=== PATIENT | female | born 1935 | race Caucasian/White ===

== ENCOUNTER 2017-04-24 16:20 | Inpatient (IN) | payer MEDICARE, MEDICAID ==
[~2017-04-24] VITALS: Ht 165.1 cm; Wt 81.9 kg
[2017-04-24 16:20] VITALS: BP 138/82
[~2017-04-24 16:20] MED LIST: 'CLONIDINE0.1 MG PO; ACETAMINOPHEN-H1 TA2 PO; ALBUTEROL INH; AMLODIPINE BESY10 MG PO; ARTIFICIAL TEAR15 M1 OPH; ARTIFICIAL TEAR30 ML OPH; ASPIRIN81 M1 PO; ATIVAN0.5 MG PO; CALCIUM + VITA1 EAC2 PO; CALCIUM PO; CALCIUM600 M2 PO; CALTRATE 600600 MG PO; CELEXA10 MG PO; CHLORASEPTIC 1177 ML MM; CHLORASEPTIC MA30 ML MM; CIPRO250 MG PO; CIPRO500 MG PO; CLONIDINE HCL0.1 M1 PO; CLONIDINE PO; CLOTRIMAZOLE T; DITROPAN XL10 MG PO; DOCUSATE SODIU100 M2 PO; DULCOLAX10 M1 RC; EPI EZ PEN1 MG/ML IM; FERROUS SULFAT325 MG PO; FLAGYL250 MG PO; FLORASTOR 33 MG1 CAP PO; FLORASTOR250 MG PO; FORTAZ2 G1 IJ; GEMCOR600 MG PO; GEMFIBROZIL600 MG PO; GLIPIZIDE10 M2 PO; HUMALOG100 UNIT/2 SQ; HUMULIN 70/30 703 M1 SC; IBUPROFEN400 MG PO; KLOR-CON 88 ME1 PO; KLOR-CON 88 MEQ PO; LANTUS100 U/ML SC; LASIX20 MG PO; LEVOTHYROXIN0.025 MG PO; LOMOTIL PO; LOSARTAN POTASS1 TA4 PO; LOSARTAN POTASS1 TA6 PO; LOSARTAN POTASS1 TAB PO; LOVENOX30 MG/0.3 SC; MACROBID100 M1 PO; MACRODANTIN50 MG PO; MILK OF MA400 MG/51 PO; MIRALAX POWDER17 G1 PO; MIRALAX17 GM/DOSE PO; MULTIPLE VITAMI1 CAP PO; MUSCLE RUB 10% TP; Metformin Hydr500 MG PO; NEURONTIN300 MG PO; NITROFURANTOIN100 M3 PO; NITROFURANTOIN50 M2 PO; NOVOLIN 701 UNIT/0.0; NOVOLOG 701 UNIT/0.0 SC; NOVOLOG FLEX100 U/ML SC; NOVOLOG MI100 UNIT/1 SQ; OXYBUTYNIN CHLO10 MG PO; PRESERVISION A1 EAC1 PO; PRESERVISION1 SGL PO; Q-TUSSIN100 MG/5 M PO; RANITIDINE HCL150 M1 PO; RANITIDINE150 MG PO; TYLENOL PO; TYLENOL325 M1 PO; ZYVOX600 M1 IV; ZYVOX600 MG PO; [UNRECOGNIZED DRUG - OTHER] PO
[2017-04-24 17:00] LABS: BASO % 0.2 % (0.0-1.0); EOS # 0.4 10*3/uL (0.0-0.4); EOS % 4.8 % (1.0-4.0); HEMATOCRIT 41.2 % (37.0-47.0); LYMPH # 1.3 10*3/uL (1.3-4.4); LYMPH % 15.9 % (27.0-41.0); MEAN CELL VOLUME 92.2 fl (81.0-99.0); MEAN CORPUSCULAR HGB 29.1 pg (27.0-31.0); MEAN CORPUSCULAR HGB CONC 31.6 g/dl (33.0-37.0); MEAN PLATELET VOLUME 10.8 fl (9.6-12.3); MONO % 12.4 % (3.0-9.0); NEUT # 5.5 10*3/uL (2.3-7.9); NEUT % 66.3 % (47.0-73.0); PLATELET COUNT AUTOMATED 245 10*3/uL (130-400); RED BLOOD COUNT 4.47 10*6/uL (4.10-5.10); WHITE BLOOD COUNT 8.3 10*3/uL (4.8-10.8)
[2017-04-24 17:16] LABS: ALBUMIN 2.7 gm/dl (3.1-4.5); ALKALINE PHOSPHATASE 101 U/L (45-117); BUN 31 mg/dl (7-24); CHLORIDE 104 mmol/L (98-107); CPK 26 U/L (26-192); CREATININE 1.03 mg/dL (0.55-1.02); LDH 124 U/L (84-246); MAGNESIUM 1.9 mg/dL (1.5-2.1); POTASSIUM 3.8 mmol/L (3.5-5.1); SGOT/AST 12 IU/L (3-35); SGPT/ALT 16 U/L (12-78); SODIUM 144 mmol/L (136-145); TOTAL PROTEIN 7.4 gm/dL (6.4-8.2)
[2017-04-24 17:19] LABS: CKMB < 0.5 ng/ml (0.5-3.6); TROPONIN I < 0.015 ng/ml (<0.045)
[2017-04-24 18:04] LABS: BILIRUBIN NEGATIVE (NEGATIVE); BLOOD TRACE-INTACT (NEGATIVE); CLARITY SL CLOUDY (CLEAR); COLOR YELLOW (YELLOW); GLUCOSE NEGATIVE (NEGATIVE); KETONE NEGATIVE (NEGATIVE); LEUKO ESTERASE 3+ (NEGATIVE); NITRITE POSITIVE (NEGATIVE); SPECIFIC GRAVITY 1.015 (1.005-1.030); UROBILINOGEN 0.2 E.U./dl (0.2-1.0)
[2017-04-24 18:07] LABS: BACTERIA 3+; RBC 0-2 rbc/hpf (0-2); WBC 21-30 wbc/hpf (0-5)
[2017-04-24 20:00] VITALS: BP 157/75
[2017-04-24] MEDS ORDERED: RISPERDAL0.25 MG PO (20:54)
[2017-04-24] MEDS ORDERED: DUONEB 3 MG/3 ML3 M1 INH (20:56)
[2017-04-24] MEDS ORDERED: DIABETIC T100 MG/51 PO (20:56)
[2017-04-25] VITALS: BP 136/80
[2017-04-25 08:00] VITALS: BP 136/52
[2017-04-25 12:00] VITALS: BP 110/53
[2017-04-25 16:00] VITALS: BP 137/59
[2017-04-25 20:00] VITALS: BP 159/80
[2017-04-26] VITALS: BP 157/80
[2017-04-26 06:41] LABS: BASO % 0.3 % (0.0-1.0); EOS # 0.5 10*3/uL (0.0-0.4); EOS % 6.9 % (1.0-4.0); HEMOGLOBIN 11.4 g/dl (12.0-16.0); LYMPH # 1.2 10*3/uL (1.3-4.4); LYMPH % 18.8 % (27.0-41.0); MEAN CELL VOLUME 93.3 fl (81.0-99.0); MEAN CORPUSCULAR HGB 29.5 pg (27.0-31.0); MEAN CORPUSCULAR HGB CONC 31.7 g/dl (33.0-37.0); MEAN PLATELET VOLUME 10.9 fl (9.6-12.3); MONO # 0.9 10*3/uL (0.1-1.0); MONO % 13.2 % (3.0-9.0); NEUT # 3.9 10*3/uL (2.3-7.9); PLATELET COUNT AUTOMATED 210 10*3/uL (130-400); RED BLOOD COUNT 3.86 10*6/uL (4.10-5.10); RED CELL DISTRI WIDTH 12.8 % (0-14.5); WHITE BLOOD COUNT 6.5 10*3/uL (4.8-10.8)
[2017-04-26 07:06] LABS: ALBUMIN 2.3 gm/dl (3.1-4.5); ALKALINE PHOSPHATASE 99 U/L (45-117); BUN 26 mg/dl (7-24); CHLORIDE 105 mmol/L (98-107); CHOLESTEROL 173 mg/dL (<200); CREATININE 0.92 mg/dL (0.55-1.02); HDL CHOLESTEROL 23 mg/dl (40-60); LDL CHOLESTEROL 101 mg/dL (9-159); MAGNESIUM 1.9 mg/dL (1.5-2.1); PHOSPHOROUS 3.1 mg/dL (2.5-4.9); POTASSIUM 3.6 mmol/L (3.5-5.1); SGOT/AST 14 IU/L (3-35); SGPT/ALT 17 U/L (12-78); SODIUM 143 mmol/L (136-145); TOTAL PROTEIN 6.5 gm/dL (6.4-8.2); TRIGLYCERIDES 244 mg/dl (<150); VLDL CHOLESTEROL 49 mg/dL (6-40)
[2017-04-26 08:00] VITALS: BP 149/86
[2017-04-26 12:00] VITALS: BP 144/78
[2017-04-26 16:00] VITALS: BP 126/64
[2017-04-26 20:00] VITALS: BP 130/71
[2017-04-27] VITALS: BP 153/80
[2017-04-27 04:00] VITALS: BP 156/78
[2017-04-27 08:00] VITALS: BP 157/64
[2017-04-27 12:00] VITALS: BP 130/67
[2017-04-27 16:00] VITALS: BP 130/64
[2017-04-27 20:00] VITALS: BP 134/62
[2017-04-28] VITALS: BP 127/65
[2017-04-28 06:53] LABS: BASO % 0.4 % (0.0-1.0); EOS # 0.5 10*3/uL (0.0-0.4); EOS % 8.8 % (1.0-4.0); HEMATOCRIT 36.8 % (37.0-47.0); LYMPH # 1.4 10*3/uL (1.3-4.4); LYMPH % 27.3 % (27.0-41.0); MEAN CELL VOLUME 90.6 fl (81.0-99.0); MEAN CORPUSCULAR HGB 29.6 pg (27.0-31.0); MEAN CORPUSCULAR HGB CONC 32.6 g/dl (33.0-37.0); MEAN PLATELET VOLUME 10.8 fl (9.6-12.3); MONO # 0.6 10*3/uL (0.1-1.0); MONO % 10.7 % (3.0-9.0); NEUT # 2.8 10*3/uL (2.3-7.9); NEUT % 52.6 % (47.0-73.0); PLATELET COUNT AUTOMATED 225 10*3/uL (130-400); RED BLOOD COUNT 4.06 10*6/uL (4.10-5.10); RED CELL DISTRI WIDTH 12.8 % (0-14.5); WHITE BLOOD COUNT 5.2 10*3/uL (4.8-10.8)
[2017-04-28 08:00] VITALS: BP 134/56
[2017-04-28 12:00] VITALS: BP 135/50
[2017-04-28] MEDS ORDERED: Synthroid,Levo50 MCG PO (13:41)
[2017-04-28] MEDS ORDERED: LEVAQUIN500 M2 PO (13:42)
[2017-04-28 16:00] VITALS: BP 131/82
== END 2017-04-28 18:14 | disposition home or self-care (01) | DRG 682 ==
LOC: ED 16:20 → 5E 18:35 → EDHOLD 18:35 → 5E 04-28 18:14
PROVIDERS: Internal Medicine; Physician Assistant; ADMIT Internal Medicine
DX: N17.0 Acute kidney failure with tubular necrosis (principal); E43 Unspecified severe protein-calorie malnutrition; G93.40 Encephalopathy, unspecified; N39.0 Urinary tract infection, site not specified; E11.49 Type 2 diabetes mellitus with other diabetic neurological complication; E66.9 Obesity, unspecified; E03.9 Hypothyroidism, unspecified; R31.9 Hematuria, unspecified; D64.9 Anemia, unspecified; Z51.5 Encounter for palliative care; Z66 Do not resuscitate; Z79.4 Long term (current) use of insulin; I10 Essential (primary) hypertension; Z86.73 Personal history of transient ischemic attack (TIA), and cerebral infarction without residual deficits; Z88.0 Allergy status to penicillin; Z88.2 Allergy status to sulfonamides; Z91.012 Allergy to eggs; Z79.899 Other long term (current) drug therapy; Z90.49 Acquired absence of other specified parts of digestive tract; Z82.3 Family history of stroke; Z82.49 Family history of ischemic heart disease and other diseases of the circulatory system; Z87.81 Personal history of (healed) traumatic fracture; Z79.82 Long term (current) use of aspirin; Z68.31 Body mass index [BMI] 31.0-31.9, adult

== ENCOUNTER 2017-05-13 13:18 | Inpatient (IN) | payer MEDICARE, MEDICAID ==
[~2017-05-13] VITALS: Ht 172.7 cm; Wt 84.0 kg
--- NOTE | ~2017-05-13 | EKG ---
[place], [place] ELECTROCARDIOGRAM REPORT NAME: VALENTE HE UNIT #: [id number] ROOM: [facility] DOCTOR: PANKAJ ADLER,RADHA BIRTHDATE: [birth year] DOS: 05/15/2017 TIME: 10:56 a.m. IMPRESSION: 1. Sinus rhythm. 2. Left ventricular hypertrophy. 3. Borderline prolonged QTc interval. RADHA LIRA MD CM:EKGRPT:ELECTROCARDIOGRAM REPORT [id number] RADHA LIRA MD
[2017-05-13 13:18] VITALS: BP 134/88
[~2017-05-13 13:18] MED LIST changes: +DIABETIC T100 MG/51 PO; +DUONEB 3 MG/3 ML3 M1 INH; +LEVAQUIN500 M2 PO; +RISPERDAL0.25 MG PO; +Synthroid,Levo50 MCG PO
[2017-05-13 14:19] LABS: BASO % 0.3 % (0.0-1.0); EOS # 0.5 10*3/uL (0.0-0.4); EOS % 4.8 % (1.0-4.0); HEMATOCRIT 41.5 % (37.0-47.0); HEMOGLOBIN 13.2 g/dl (12.0-16.0); LYMPH # 1.9 10*3/uL (1.3-4.4); MEAN CELL VOLUME 90.2 fl (81.0-99.0); MEAN CORPUSCULAR HGB 28.7 pg (27.0-31.0); MEAN CORPUSCULAR HGB CONC 31.8 g/dl (33.0-37.0); MEAN PLATELET VOLUME 10.6 fl (9.6-12.3); MONO # 0.9 10*3/uL (0.1-1.0); MONO % 9.4 % (3.0-9.0); NEUT # 6.4 10*3/uL (2.3-7.9); NEUT % 66.1 % (47.0-73.0); PLATELET COUNT AUTOMATED 263 10*3/uL (130-400); RED CELL DISTRI WIDTH 12.7 % (0-14.5); WHITE BLOOD COUNT 9.7 10*3/uL (4.8-10.8)
[2017-05-13 14:21] LABS: BILIRUBIN NEGATIVE (NEGATIVE); BLOOD TRACE-INTACT (NEGATIVE); CLARITY CLEAR (CLEAR); COLOR YELLOW (YELLOW); GLUCOSE NEGATIVE (NEGATIVE); KETONE NEGATIVE (NEGATIVE); LEUKO ESTERASE 3+ (NEGATIVE); NITRITE NEGATIVE (NEGATIVE); UROBILINOGEN 0.2 E.U./dl (0.2-1.0)
[2017-05-13 14:30] LABS: WBC 51-100 wbc/hpf (0-5)
[2017-05-13 14:30] LABS: ACT PARTIAL THROMBO TIME 25.6 SECONDS (20.8-31.5)
[2017-05-13 14:31] LABS: BACTERIA 1+
[2017-05-13 14:36] LABS: ALKALINE PHOSPHATASE 115 U/L (45-117); BUN 34 mg/dl (7-24); CHLORIDE 100 mmol/L (98-107); CKMB 2.1 ng/ml (0.5-3.6); CPK 57 U/L (26-192); CREATININE 1.11 mg/dL (0.55-1.02); LIPASE 155 U/L (73-393); MAGNESIUM 2.2 mg/dL (1.5-2.1); POTASSIUM 3.8 mmol/L (3.5-5.1); SGOT/AST 20 IU/L (3-35); SGPT/ALT 21 U/L (12-78); SODIUM 138 mmol/L (136-145); TOTAL PROTEIN 7.7 gm/dL (6.4-8.2)
[2017-05-13 14:40] LABS: TROPONIN I < 0.015 ng/ml (<0.045)
--- NOTE | 2017-05-13 17:10 | NUR ---
A 82, admitted to , under the services of LANDRY Carter DO with a diagnosis of UTI, METABOLIC ENCEPHALOPATHY, DEHYDRATION. Chief complaint is CHANGE IN MENTAL STATUS. Patient arrived via bed from ER. Monitor applied. Initial assessment completed. Vital signs taken and recorded. LANDRY CARTER DO notified of admission to the unit. Orders received. See assessment for past medical history, medications and allergies. Patient and/or family oriented to unit. [facility] visitation policy reviewed. Clothing/patient valuable form completed. AYDEN BURRELL
[2017-05-13 17:17] VITALS: BP 152/74
[2017-05-13] MEDS ORDERED: ARGINAID POWDE1 EACH PO (17:36)
[2017-05-13] MEDS ORDERED: LANTUS SOL100 UNIT/1 SQ (17:39)
--- NOTE | 2017-05-13 17:40 | NUR ---
MED REC UPDATED PER LIST PROVIDED BY ASSISTED
[2017-05-13] MEDS ORDERED: SANTYL30 GM T (18:21)
[2017-05-13 20:00] VITALS: BP 159/94
[2017-05-14] VITALS: BP 158/78
--- NOTE | 2017-05-14 00:20 | NUR ---
PT YELLING OUT. FLUIDS OFFERED AND ACCEPTED. REPOSITIONED AND 1:[address] KINGSTON NOTIFIED. TO PUT ORDERS IN.
--- NOTE | 2017-05-14 01:00 | NUR ---
PT SLEEPING QUIETLY IN BED AT THIS TIME. PRN ATIVAN EFFECTIVE.
[2017-05-14 08:00] VITALS: BP 186/80
--- NOTE | 2017-05-14 08:00 | NUR ---
PT RESTING IN BED. NO DISTRESS NOTED. WILL MONITOR. SEE SHIFT ASSESSMENT
[2017-05-14 08:30] LABS: BASO % 0.2 % (0.0-1.0); EOS # 0.4 10*3/uL (0.0-0.4); EOS % 4.3 % (1.0-4.0); HEMATOCRIT 37.7 % (37.0-47.0); HEMOGLOBIN 12.2 g/dl (12.0-16.0); LYMPH # 1.1 10*3/uL (1.3-4.4); LYMPH % 12.1 % (27.0-41.0); MEAN CELL VOLUME 90.8 fl (81.0-99.0); MEAN CORPUSCULAR HGB 29.4 pg (27.0-31.0); MEAN CORPUSCULAR HGB CONC 32.4 g/dl (33.0-37.0); MEAN PLATELET VOLUME 10.6 fl (9.6-12.3); MONO # 0.9 10*3/uL (0.1-1.0); MONO % 9.6 % (3.0-9.0); NEUT # 6.9 10*3/uL (2.3-7.9); NEUT % 73.3 % (47.0-73.0); PLATELET COUNT AUTOMATED 252 10*3/uL (130-400); RED BLOOD COUNT 4.15 10*6/uL (4.10-5.10); RED CELL DISTRI WIDTH 12.6 % (0-14.5); WHITE BLOOD COUNT 9.5 10*3/uL (4.8-10.8)
[2017-05-14 09:05] LABS: CHLORIDE 103 mmol/L (98-107); CREATININE 0.88 mg/dL (0.55-1.02); PHOSPHOROUS 3.7 mg/dL (2.5-4.9); POTASSIUM 3.6 mmol/L (3.5-5.1); SODIUM 141 mmol/L (136-145)
[2017-05-14 09:15] LABS: BUN 24 mg/dl (7-24)
--- NOTE | 2017-05-14 10:30 | NUR ---
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
--- NOTE | 2017-05-14 11:05 | NUR ---
VALENTE HE [id number] Please refer to the physician's history and physical for past medical history, comorbid conditions, and allergies. Diagnosis: UTI METABOLIC ENCEPHALOPATHY DEHYDRATION César Score: 14,MODERATE RISK WOUND DESCRIPTIONS: Location of the wound: right upper arm Type of wound: skin tear Thickness: Partial Size: 3.7cm x 0.1cm x 0.1cm Tunneling: none Undermining: none Sinus Tract: none Presence of Exudate: sreosanguineous Amount: Light Color: Red Odor: None Periwound Skin Appearance: Normal Wound edges: approximated Pain (associated with wound): none at present time. How does patient state this happened? pt unable to state how this happened. Location of the wound: right outer leg Thickness: Full Size: 5.5cm x 3.2cm x 1.9cm Tunneling: none Undermining: none Sinus Tract: none Presence of Exudate: serosanguineous Amount: Moderate Color: Yellow Odor: None Periwound Skin Appearance: Normal Wound edges: epibole Pain (associated with wound): none at time of assessment How does patient state this happened? pt unsure how this happened Surface the patient is resting on: Isoflex SKIN PREVENTION RECOMMENDATION: 1. Pressure redistribution support surface as appropriate 2. Elevate heels 3. Remove boots/TEDS every shift and reapply 4. Head of bed 30 degrees as tolerated 5. Assess nutrition and hydration 6. Manage moisture 7. Avoid the use of containment devices while in bed 8. Use absorptive products on surfaces limit layers of linens on bed 9. Turn and reposition every 1-2 hours in bed and every 1 hour in chair as tolerated 10. Weight shifts every 15 minutes while up in chair 11. Offloading with pillows or device to keep heels elevated off bed 12. Monitor skin at least every shift 13. Inspect under medical devices twice a day WOUND TREATMENT RECOMMENDATIONS: Spoke with magaly cain who gave me the information for the wound care center at [place] and orders were to cleanse with soapy water and apply santyl then apply 2x2 then cover with 4x4 then wrap with kerlix. wound care center stated that we are able to consult the wound care physician here at the hospital. Cleanse right outer calf with nss and apply sureprep around the wound therahoney to wound bed and cover with 4x4 then wrap with kerlix. Cleanse right upper arm with nss and apply sureprep to surrounding wound bed, versatel to wound bed and apply hydrogel and cover with optifoam gentle.
[2017-05-14 12:00] VITALS: BP 168/68
--- NOTE | 2017-05-14 12:41 | NUR ---
NOTIFIED OF WHITE FILM AND REDNESS ON PTS TONGUE. PT DENIES PAIN DISCOMFORT
--- NOTE | 2017-05-14 14:19 | NUR ---
SPOKE WITH DR CASEY REGARDING CONSULT
[2017-05-14 16:00] VITALS: BP 184/86
--- NOTE | 2017-05-14 17:13 | NUR ---
DR PYLE NOTIFIED OF BP AND HR.
[2017-05-14 20:00] VITALS: BP 153/75
[2017-05-15] VITALS: BP 154/76
[2017-05-15 08:00] VITALS: BP 150/56
--- NOTE | 2017-05-15 10:20 | NUR ---
CHEMOE TO AROUSE PATIENT FOR 10 AM MEDICATIONS AFTER REPEATED STIMULI TO AWAKEN. BSG 141. DR. ODEN AWARE AND EXAMINED PT. ORDERS TO FOLLOW.
[2017-05-15 10:34] LABS: HEMATOCRIT 39.7 % (37.0-47.0); HEMOGLOBIN 12.7 g/dl (12.0-16.0); MEAN CELL VOLUME 90.2 fl (81.0-99.0); MEAN CORPUSCULAR HGB 28.9 pg (27.0-31.0); PLATELET COUNT AUTOMATED 183 10*3/uL (130-400); RED CELL DISTRI WIDTH 12.6 % (0-14.5); WHITE BLOOD COUNT 9.7 10*3/uL (4.8-10.8)
--- NOTE | 2017-05-15 10:42 | NUR ---
ABG BEING DRAWN AND PT. RESPONDED TO PAIN WITH A JERK.
[2017-05-15 10:50] LABS: ALBUMIN 2.6 gm/dl (3.1-4.5); ALKALINE PHOSPHATASE 108 U/L (45-117); BUN 15 mg/dl (7-24); CHLORIDE 104 mmol/L (98-107); CREATININE 0.73 mg/dL (0.55-1.02); MAGNESIUM 1.9 mg/dL (1.5-2.1); PHOSPHOROUS 2.7 mg/dL (2.5-4.9); POTASSIUM 3.7 mmol/L (3.5-5.1); SGOT/AST 14 IU/L (3-35); SGPT/ALT 17 U/L (12-78); SODIUM 139 mmol/L (136-145)
[2017-05-15 11:00] LABS: PLATELET SUFFICIENCY NORMAL (NORMAL); TOTAL CELLS COUNTED 100 #CELLS
[2017-05-15 11:13] LABS: ABG HCO3 31.7 mmol/l (22-26); ABG O2 SATURATION 92.7 % (95-97); ARTERIAL BLOOD GAS PCO2 50.2 mmHg (35-45); ARTERIAL BLOOD GAS PH 7.412 (7.35-7.45); ARTERIAL BLOOD GAS PO2 61.7 mmHg (80-90)
--- NOTE | 2017-05-15 11:40 | NUR ---
CALLED AND TALKED WITH DAUGHTER AND SHE IS AWARE OF MOTHER'S CONDITION.
[2017-05-15 12:00] VITALS: BP 147/76
[2017-05-15 16:00] VITALS: BP 155/55
[2017-05-15 16:58] LABS: ABG BASE EXCESS 6.3 mmol/L (-2.0-2.0); ABG HCO3 31.9 mmol/l (22-26); ABG O2 SATURATION 94.2 % (95-97); ARTERIAL BLOOD GAS PCO2 50.3 mmHg (35-45); ARTERIAL BLOOD GAS PH 7.415 (7.35-7.45); ARTERIAL BLOOD GAS PO2 65.9 mmHg (80-90)
[2017-05-15 20:00] VITALS: BP 156/83
--- NOTE | 2017-05-15 20:20 | NUR ---
PT RESTING IN BED WITH EYES CLOSED. AWAKENS. PT DROWSY. RESP-EASY AND REGULAR. OXYGEN IN USE VIA VENTURI MASK. IVF INFUSING WITH NO PROBLEM. CALL LIGHT IN REACH.
--- NOTE | 2017-05-15 21:30 | NUR ---
PT SLEEPING IN BED. RESP-EASY AND REGULAR. AWAKENS. TOLERATED ROUTINE MED WITH NO PROBLEM. CALL LIGHT IN REACH. BSG-218, SEE EMAR.
--- NOTE | 2017-05-15 23:50 | NUR ---
PT RESTING IN BED WITH EYES CLOSED. AWAKENS,VERY DROWSY. NO C/O AT THIS TIME. REPOSITIONED IN BED. CALL LIGHT IN REACH. SEE SHIFT ASSESSMENT.
[2017-05-16] VITALS: BP 154/64
--- NOTE | 2017-05-16 04:00 | NUR ---
SLEEPING IN BED. RESP-EASY AND REGULAR. CALL LIGHT IN REACH.
--- NOTE | 2017-05-16 06:00 | NUR ---
TOLERATED ROUTINE MED WITH NO PROBLEM. BSG-149, SEE EMAR. CALL LIGHT IN REACH.
[2017-05-16 08:00] VITALS: BP 148/55
[2017-05-16 12:00] VITALS: BP 180/69
--- NOTE | 2017-05-16 13:31 | NUR ---
ENTERED ROOM TO FIND PT AWAKE ALERT AND EATING LUNCH. PT TALKING TO DAUGHTER. ORIENTED TO PERSON WITH CONFUSION. PT TOOK 1400 MEDS AT THIS TIME. WILL CONT TO MONITOR. CALL LIGHT IN REACH.
--- NOTE | 2017-05-16 14:44 | NUR ---
DR PYLE NOTIFIED OF ELEVATED BP AND THAT I WAS UNABLE TO GIVE HER THE CLONIDINE THIS MORNING DUE TO HER LETHARGY. HE STATED TO JUST KEEP AN EYE ON HER BP AND TO RECHECK IN ONE HOUR. WILL MONITOR
[2017-05-16 16:00] VITALS: BP 142/60
[2017-05-16 20:00] VITALS: BP 146/71
[2017-05-17] VITALS: BP 134/70
--- NOTE | 2017-05-17 00:29 | NUR ---
24 HR chart check completed.
[2017-05-17 08:00] VITALS: BP 147/75
--- NOTE | 2017-05-17 10:50 | NUR ---
DAUGHTER IN WITH PATIENT. PT STATES NO NEEDS AT THIS TIME. WILL CONTINUE TO MONITOR
[2017-05-17 12:00] VITALS: BP 157/69
[2017-05-17 16:00] VITALS: BP 121/68
[2017-05-17 20:00] VITALS: BP 134/84
[2017-05-18] VITALS: BP 92/57
--- NOTE | 2017-05-18 00:44 | NUR ---
24 HR chart check completed.
[2017-05-18 06:57] LABS: BASO % 0.2 % (0.0-1.0); EOS # 0.5 10*3/uL (0.0-0.4); EOS % 5.1 % (1.0-4.0); HEMATOCRIT 34.7 % (37.0-47.0); HEMOGLOBIN 11.4 g/dl (12.0-16.0); LYMPH # 1.1 10*3/uL (1.3-4.4); MEAN CELL VOLUME 90.1 fl (81.0-99.0); MEAN CORPUSCULAR HGB 29.6 pg (27.0-31.0); MEAN CORPUSCULAR HGB CONC 32.9 g/dl (33.0-37.0); MEAN PLATELET VOLUME 11.4 fl (9.6-12.3); MONO # 0.9 10*3/uL (0.1-1.0); MONO % 10.3 % (3.0-9.0); NEUT # 6.2 10*3/uL (2.3-7.9); NEUT % 70.9 % (47.0-73.0); PLATELET COUNT AUTOMATED 237 10*3/uL (130-400); RED BLOOD COUNT 3.85 10*6/uL (4.10-5.10); RED CELL DISTRI WIDTH 12.6 % (0-14.5); WHITE BLOOD COUNT 8.8 10*3/uL (4.8-10.8)
[2017-05-18 07:02] LABS: CREATININE 0.88 mg/dL (0.55-1.02)
[2017-05-18 08:00] VITALS: BP 123/59
--- NOTE | 2017-05-18 08:00 | NUR ---
PATIENT RESTING IN BED. DENIES DISCOMFORT. BED IN LOW POSITION. CALL LIGHT WITHIN REACH.
--- NOTE | 2017-05-18 09:13 | NUR ---
PULSE OX ON 2L AT REST 100, O2 REMOVED AND RECHECKED IN 45 MINUTES, PULSE OX WAS 88 ON R/A AT REST. O2 PLACED ON AT 2L FOR RECOVERY, PULSE OX INCREASING TO 93%. RN NOTIFIED AND MESSAGE WAS LEFT ON YOKO'S MACHINE.
[2017-05-18 12:00] VITALS: BP 126/62
[2017-05-18] MEDS ORDERED: AMINOPHYLLIN200 MG PO (12:29)
[2017-05-18] MEDS ORDERED: NORCO 5-325 TA1 EACH PO (12:29)
[2017-05-18] MEDS ORDERED: Nystatin 100,000 UNI PO (12:29)
[2017-05-18] MEDS ORDERED: Vitamin D PO (12:29)
--- NOTE | 2017-05-18 13:41 | NUR ---
Patient being discharge back to [facility], transportation scheduled for 4 pm with [facility]. [place], nursing and family notified.
--- NOTE | 2017-05-18 14:46 | NUR ---
NORCO 5/325 GIVEN PER PATIENT REQUEST FOR LEFT KNEE PAIN.
--- NOTE | 2017-05-18 14:50 | NUR ---
TALKED TO FAMILY ABOUT FLU VACCINE. THEY STATE PT IS ALLERGIC TO IT AND THEY DO NOT WANT HER TO HAVE IT.
[2017-05-18 16:00] VITALS: BP 133/70
--- NOTE | 2017-05-18 16:46 | NUR ---
DISCHARGED TO [facility]IA AMBULANCE.
== END 2017-05-18 16:46 | disposition home or self-care (01) | DRG 698 ==
LOC: ED 13:18 → EDHOLD 14:47 → 5E 14:47
PROVIDERS: Emergency Medicine; Student in an Organized Health Care Education/Training Program; ADMIT Internal Medicine
DX: T83.511A Infection and inflammatory reaction due to indwelling urethral catheter, initial encounter (principal); N17.0 Acute kidney failure with tubular necrosis; J96.21 Acute and chronic respiratory failure with hypoxia; E43 Unspecified severe protein-calorie malnutrition; G93.41 Metabolic encephalopathy; E86.0 Dehydration; F03.90 Unspecified dementia, unspecified severity, without behavioral disturbance, psychotic disturbance, mood disturbance, and anxiety; E11.622 Type 2 diabetes mellitus with other skin ulcer; J96.22 Acute and chronic respiratory failure with hypercapnia; L97.912 Non-pressure chronic ulcer of unspecified part of right lower leg with fat layer exposed; E11.65 Type 2 diabetes mellitus with hyperglycemia; N39.0 Urinary tract infection, site not specified; E66.9 Obesity, unspecified; B96.4 Proteus (mirabilis) (morganii) as the cause of diseases classified elsewhere; E03.9 Hypothyroidism, unspecified; I10 Essential (primary) hypertension; Z51.5 Encounter for palliative care; Z66 Do not resuscitate; Z79.4 Long term (current) use of insulin; Z88.0 Allergy status to penicillin; Z88.2 Allergy status to sulfonamides; Z88.7 Allergy status to serum and vaccine; Z91.012 Allergy to eggs; Z86.73 Personal history of transient ischemic attack (TIA), and cerebral infarction without residual deficits; Z87.81 Personal history of (healed) traumatic fracture; Z87.440 Personal history of urinary (tract) infections; Z90.49 Acquired absence of other specified parts of digestive tract; Z82.49 Family history of ischemic heart disease and other diseases of the circulatory system; Z68.28 Body mass index [BMI] 28.0-28.9, adult; Z82.3 Family history of stroke; Z79.82 Long term (current) use of aspirin; Y83.8 Other surgical procedures as the cause of abnormal reaction of the patient, or of later complication, without mention of misadventure at the time of the procedure; Y92.89 Other specified places as the place of occurrence of the external cause

== ENCOUNTER 2018-01-09 18:48 | Inpatient (IN) | payer MEDICARE, MEDICAID ==
[~2018-01-09] VITALS: Ht 170.1 cm; Wt 85.4 kg
--- NOTE | ~2018-01-09 | PR ---
[place], [place] PROGRESS NOTE NAME: VALENTE HE [facility] #: [id number] UNIT #: [id number] ROOM: 409 DOCTOR: SIN ESCALERA DPM BIRTHDATE: [birth year] DOS: 01/12/2018 SUBJECTIVE: The patient presents for followup of chronic ulceration lateral right lower leg. OBJECTIVE: Ulceration lateral right calf is clean and granular. No signs of abscess, no signs of cellulitis or drainage. Well-defined borders noted. ASSESSMENT: Ulceration, lateral right calf. Diabetes. PLAN: Evaluation and management. Continue local wound care and I will reappoint with the patient on if she is still inhouse. SIN ESCALERA DPM CM:MELONY 1152 1234 SIN ESCALERA DPM 01/12/18 1233 interface
--- NOTE | ~2018-01-09 | PR ---
[place], [place] PROGRESS NOTE NAME: VALENTE HE [facility] #: [id number] UNIT #: [id number] ROOM: 409 DOCTOR: SIN ESCALERA DPM BIRTHDATE: [birth year] DOS: 01/14/2018 SUBJECTIVE: The patient is seen for follows up of chronic ulceration to lateral right lower leg. OBJECTIVE: The ulceration is granular and clean. No signs of purulent drainage or foul odor. Well-defined borders, improving from previous exam and stable at this time, free of infection or complication. ASSESSMENT: Chronic ulceration, lateral right lower leg. PLAN: Evaluation and management. Continue local wound care and we will follow the patient while she is in house. SIN ESCALERA DPM CM:MELONY 1142 1518 SIN ESCALERA DPM 01/14/18 1517 interface
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
[~2018-01-09 18:48] MED LIST changes: +AMINOPHYLLIN200 MG PO; +ARGINAID POWDE1 EACH PO; +LANTUS SOL100 UNIT/1 SQ; -LANTUS100 U/ML SC; +NORCO 5-325 TA1 EACH PO; +Nystatin 100,000 UNI PO; +SANTYL30 GM T; +Vitamin D PO
[2018-01-09 18:50] VITALS: BP 147/91
[2018-01-09 19:43] LABS: BASO % 0.2 % (0.0-1.0); EOS # 0.5 10*3/uL (0.0-0.4); EOS % 5.2 % (1.0-4.0); HEMATOCRIT 41.7 % (37.0-47.0); LYMPH # 2.1 10*3/uL (1.3-4.4); LYMPH % 22.2 % (27.0-41.0); MEAN CELL VOLUME 92.1 fl (81.0-99.0); MEAN CORPUSCULAR HGB 28.7 pg (27.0-31.0); MEAN CORPUSCULAR HGB CONC 31.2 g/dl (33.0-37.0); MEAN PLATELET VOLUME 11.6 fl (9.6-12.3); MONO # 0.9 10*3/uL (0.1-1.0); MONO % 9.6 % (3.0-9.0); NEUT # 5.9 10*3/uL (2.3-7.9); NEUT % 62.4 % (47.0-73.0); PLATELET COUNT AUTOMATED 214 10*3/uL (130-400); RED BLOOD COUNT 4.53 10*6/uL (4.10-5.10); RED CELL DISTRI WIDTH 12.6 % (0-14.5); WHITE BLOOD COUNT 9.5 10*3/uL (4.8-10.8)
[2018-01-09 19:53] LABS: ACT PARTIAL THROMBO TIME 24.1 SECONDS (20.8-31.5)
[2018-01-09 19:56] LABS: BILIRUBIN NEGATIVE (NEGATIVE); BLOOD 1+ (NEGATIVE); CLARITY CLOUDY (CLEAR); COLOR YELLOW (YELLOW); GLUCOSE NEGATIVE (NEGATIVE); KETONE NEGATIVE (NEGATIVE); LEUKO ESTERASE 3+ (NEGATIVE); NITRITE NEGATIVE (NEGATIVE); PH 6.5 (5.0-9.0); UROBILINOGEN 0.2 E.U./dl (0.2-1.0)
[2018-01-09 20:00] LABS: ALBUMIN 3.1 gm/dl (3.1-4.5); ALKALINE PHOSPHATASE 93 U/L (45-117); BUN 45 mg/dl (7-24); CHLORIDE 104 mmol/L (98-107); CREATININE 1.09 mg/dL (0.55-1.02); POTASSIUM 4.1 mmol/L (3.5-5.1); SGOT/AST 13 IU/L (3-35); SGPT/ALT 22 U/L (12-78); SODIUM 142 mmol/L (136-145)
[2018-01-09 20:01] LABS: BACTERIA 4+; WBC 51-100 wbc/hpf (0-5)
[2018-01-09 20:03] LABS: TROPONIN I < 0.015 ng/ml (<0.045)
[2018-01-09 21:00] VITALS: BP 174/81
[2018-01-09 22:00] VITALS: BP 170/72
[2018-01-09] MEDS ORDERED: NEURONTIN300 MG PO (23:12)
[2018-01-09] MEDS ORDERED: DULCOLAX10 M1 R (23:16)
[2018-01-09] MEDS ORDERED: KLOR-CON 1010 ME1 PO (23:19)
[2018-01-10 07:04] LABS: BASO % 0.2 % (0.0-1.0); EOS # 0.5 10*3/uL (0.0-0.4); EOS % 6.4 % (1.0-4.0); HEMATOCRIT 40.4 % (37.0-47.0); HEMOGLOBIN 12.6 g/dl (12.0-16.0); LYMPH % 23.8 % (27.0-41.0); MEAN CELL VOLUME 92.2 fl (81.0-99.0); MEAN CORPUSCULAR HGB 28.8 pg (27.0-31.0); MEAN CORPUSCULAR HGB CONC 31.2 g/dl (33.0-37.0); MEAN PLATELET VOLUME 11.6 fl (9.6-12.3); MONO # 0.8 10*3/uL (0.1-1.0); MONO % 8.9 % (3.0-9.0); NEUT # 5.1 10*3/uL (2.3-7.9); NEUT % 60.5 % (47.0-73.0); PLATELET COUNT AUTOMATED 194 10*3/uL (130-400); RED BLOOD COUNT 4.38 10*6/uL (4.10-5.10); RED CELL DISTRI WIDTH 12.6 % (0-14.5); WHITE BLOOD COUNT 8.4 10*3/uL (4.8-10.8)
[2018-01-10 07:14] LABS: CHLORIDE 106 mmol/L (98-107); CREATININE 0.92 mg/dL (0.55-1.02); PHOSPHOROUS 3.3 mg/dL (2.5-4.9); SODIUM 144 mmol/L (136-145)
[2018-01-10 07:22] LABS: BUN 35 mg/dl (7-24)
[2018-01-10 08:00] VITALS: BP 190/87
[2018-01-10 08:12] LABS: VITAMIN D, 25-HYDROXY 25.4 ng/mL (30-100)
[2018-01-10 11:01] VITALS: BP 144/82
[2018-01-10 12:00] VITALS: BP 120/56
[2018-01-10 15:24] LABS: ABG BASE EXCESS 5.1 mmol/L (-2.0-2.0); ABG HCO3 30.5 mmol/l (22-26); ABG O2 SATURATION 95.8 % (95-97); ARTERIAL BLOOD GAS PCO2 49.9 mmHg (35-45); ARTERIAL BLOOD GAS PH 7.402 (7.35-7.45); ARTERIAL BLOOD GAS PO2 75.6 mmHg (80-90)
[2018-01-10 15:34] LABS: BASO % 0.4 % (0.0-1.0); EOS # 0.4 10*3/uL (0.0-0.4); EOS % 4.3 % (1.0-4.0); HEMATOCRIT 42.5 % (37.0-47.0); HEMOGLOBIN 13.4 g/dl (12.0-16.0); LYMPH # 2.1 10*3/uL (1.3-4.4); LYMPH % 21.8 % (27.0-41.0); MEAN CELL VOLUME 91.6 fl (81.0-99.0); MEAN CORPUSCULAR HGB 28.9 pg (27.0-31.0); MEAN CORPUSCULAR HGB CONC 31.5 g/dl (33.0-37.0); MEAN PLATELET VOLUME 11.6 fl (9.6-12.3); MONO # 0.8 10*3/uL (0.1-1.0); MONO % 7.8 % (3.0-9.0); NEUT # 6.3 10*3/uL (2.3-7.9); NEUT % 65.5 % (47.0-73.0); PLATELET COUNT AUTOMATED 195 10*3/uL (130-400); RED BLOOD COUNT 4.64 10*6/uL (4.10-5.10); RED CELL DISTRI WIDTH 12.6 % (0-14.5); WHITE BLOOD COUNT 9.6 10*3/uL (4.8-10.8)
[2018-01-10 15:50] LABS: ALBUMIN 3.1 gm/dl (3.1-4.5); ALKALINE PHOSPHATASE 87 U/L (45-117); BUN 32 mg/dl (7-24); CHLORIDE 104 mmol/L (98-107); CREATININE 1.04 mg/dL (0.55-1.02); PHOSPHOROUS 3.2 mg/dL (2.5-4.9); POTASSIUM 4.1 mmol/L (3.5-5.1); SGOT/AST 19 IU/L (3-35); SGPT/ALT 23 U/L (12-78); SODIUM 142 mmol/L (136-145)
[2018-01-10 16:00] VITALS: BP 142/56; BP 151/62
[2018-01-10 20:00] VITALS: BP 152/55
[2018-01-11] VITALS: BP 156/66
[2018-01-11 06:52] LABS: BASO % 0.2 % (0.0-1.0); EOS # 0.4 10*3/uL (0.0-0.4); EOS % 4.6 % (1.0-4.0); HEMATOCRIT 41.3 % (37.0-47.0); HEMOGLOBIN 12.8 g/dl (12.0-16.0); LYMPH # 1.7 10*3/uL (1.3-4.4); LYMPH % 18.5 % (27.0-41.0); MEAN CELL VOLUME 92.4 fl (81.0-99.0); MEAN CORPUSCULAR HGB 28.6 pg (27.0-31.0); MEAN PLATELET VOLUME 11.7 fl (9.6-12.3); MONO # 0.7 10*3/uL (0.1-1.0); MONO % 7.5 % (3.0-9.0); NEUT # 6.4 10*3/uL (2.3-7.9); NEUT % 68.9 % (47.0-73.0); PLATELET COUNT AUTOMATED 191 10*3/uL (130-400); RED BLOOD COUNT 4.47 10*6/uL (4.10-5.10); RED CELL DISTRI WIDTH 12.6 % (0-14.5); WHITE BLOOD COUNT 9.3 10*3/uL (4.8-10.8)
[2018-01-11 07:27] LABS: CHLORIDE 106 mmol/L (98-107); POTASSIUM 3.5 mmol/L (3.5-5.1); SODIUM 143 mmol/L (136-145)
[2018-01-11 07:51] LABS: ALKALINE PHOSPHATASE 87 U/L (45-117); BUN 25 mg/dl (7-24); CREATININE 0.76 mg/dL (0.55-1.02); SGOT/AST 18 IU/L (3-35); SGPT/ALT 22 U/L (12-78); TOTAL PROTEIN 6.7 gm/dL (6.4-8.2)
[2018-01-11 08:00] VITALS: BP 181/86
[2018-01-11 12:00] VITALS: BP 193/90
[2018-01-11 13:17] VITALS: BP 190/90
[2018-01-11 16:00] VITALS: BP 148/124
[2018-01-11 20:00] VITALS: BP 136/65
[2018-01-12] VITALS: BP 158/82
[2018-01-12 08:00] VITALS: BP 143/80
[2018-01-12 12:00] VITALS: BP 157/70
[2018-01-12 16:00] VITALS: BP 178/72
[2018-01-12 20:00] VITALS: BP 150/73
[2018-01-13] VITALS: BP 122/70
[2018-01-13 08:00] VITALS: BP 164/60
[2018-01-13 16:00] VITALS: BP 159/67
[2018-01-13 20:00] VITALS: BP 153/91
[2018-01-14 00:21] VITALS: BP 147/64
[2018-01-14 07:23] LABS: BASO % 0.4 % (0.0-1.0); EOS # 0.5 10*3/uL (0.0-0.4); EOS % 6.3 % (1.0-4.0); HEMATOCRIT 35.8 % (37.0-47.0); HEMOGLOBIN 11.6 g/dl (12.0-16.0); LYMPH # 1.5 10*3/uL (1.3-4.4); LYMPH % 19.8 % (27.0-41.0); MEAN CELL VOLUME 90.2 fl (81.0-99.0); MEAN CORPUSCULAR HGB 29.2 pg (27.0-31.0); MEAN CORPUSCULAR HGB CONC 32.4 g/dl (33.0-37.0); MEAN PLATELET VOLUME 12.1 fl (9.6-12.3); MONO # 0.8 10*3/uL (0.1-1.0); MONO % 10.6 % (3.0-9.0); NEUT # 4.6 10*3/uL (2.3-7.9); NEUT % 62.6 % (47.0-73.0); PLATELET COUNT AUTOMATED 179 10*3/uL (130-400); RED BLOOD COUNT 3.97 10*6/uL (4.10-5.10); RED CELL DISTRI WIDTH 12.9 % (0-14.5); WHITE BLOOD COUNT 7.4 10*3/uL (4.8-10.8)
[2018-01-14 07:38] LABS: CREATININE 0.71 mg/dL (0.55-1.02)
[2018-01-14 08:00] VITALS: BP 156/99
== END 2018-01-14 15:56 | DRG 189 ==
LOC: ED 18:48 → 4E 20:16 → EDHOLD 20:16 → 4E 20:29
PROVIDERS: Internal Medicine; Nurse Practitioner Family; Student in an Organized Health Care Education/Training Program
DX: J96.02 Acute respiratory failure with hypercapnia (principal); N17.9 Acute kidney failure, unspecified; G93.41 Metabolic encephalopathy; L89.894 Pressure ulcer of other site, stage 4; E44.0 Moderate protein-calorie malnutrition; E11.40 Type 2 diabetes mellitus with diabetic neuropathy, unspecified; E11.41 Type 2 diabetes mellitus with diabetic mononeuropathy; N39.0 Urinary tract infection, site not specified; J96.01 Acute respiratory failure with hypoxia; E11.621 Type 2 diabetes mellitus with foot ulcer; Z66 Do not resuscitate; E03.9 Hypothyroidism, unspecified; E66.9 Obesity, unspecified; Z96.651 Presence of right artificial knee joint; K57.90 Diverticulosis of intestine, part unspecified, without perforation or abscess without bleeding; E11.65 Type 2 diabetes mellitus with hyperglycemia; E55.9 Vitamin D deficiency, unspecified; K59.00 Constipation, unspecified; D72.810 Lymphocytopenia; L97.519 Non-pressure chronic ulcer of other part of right foot with unspecified severity; Z88.0 Allergy status to penicillin; Z88.2 Allergy status to sulfonamides; Z88.7 Allergy status to serum and vaccine; Z91.012 Allergy to eggs; Z87.81 Personal history of (healed) traumatic fracture; Z79.4 Long term (current) use of insulin; Z90.49 Acquired absence of other specified parts of digestive tract; Z86.73 Personal history of transient ischemic attack (TIA), and cerebral infarction without residual deficits; Z79.82 Long term (current) use of aspirin; Z68.29 Body mass index [BMI] 29.0-29.9, adult

== ENCOUNTER 2018-05-06 18:46 | Inpatient (IN) | payer MEDICARE, MEDICAID ==
[~2018-05-06] VITALS: Ht 175.3 cm; Wt 85.3 kg
--- NOTE | ~2018-05-06 | EKG ---
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
[~2018-05-06 18:46] MED LIST changes: +DULCOLAX10 M1 R; -FLORASTOR 33 MG1 CAP PO; +KLOR-CON 1010 ME1 PO
[2018-05-06 18:54] VITALS: BP 162/99
[2018-05-06 19:25] VITALS: BP 162/99
[2018-05-06 19:31] LABS: BASO % 0.2 % (0.0-1.0); EOS % 0.2 % (1.0-4.0); HEMATOCRIT 41.3 % (37.0-47.0); HEMOGLOBIN 13.4 g/dl (12.0-16.0); LYMPH # 0.6 10*3/uL (1.3-4.4); LYMPH % 3.4 % (27.0-41.0); MEAN CORPUSCULAR HGB 28.9 pg (27.0-31.0); MEAN CORPUSCULAR HGB CONC 32.4 g/dl (33.0-37.0); MEAN PLATELET VOLUME 11.1 fl (9.6-12.3); MONO # 1.4 10*3/uL (0.1-1.0); MONO % 7.5 % (3.0-9.0); NEUT # 16.1 10*3/uL (2.3-7.9); NEUT % 88.3 % (47.0-73.0); PLATELET COUNT AUTOMATED 225 10*3/uL (130-400); RED BLOOD COUNT 4.64 10*6/uL (4.10-5.10); RED CELL DISTRI WIDTH 12.6 % (0-14.5); WHITE BLOOD COUNT 18.2 10*3/uL (4.8-10.8)
[2018-05-06 19:43] LABS: BILIRUBIN NEGATIVE (NEGATIVE); BLOOD 2+ (NEGATIVE); CLARITY CLOUDY (CLEAR); COLOR YELLOW (YELLOW); GLUCOSE NEGATIVE (NEGATIVE); KETONE NEGATIVE (NEGATIVE); LEUKO ESTERASE 2+ (NEGATIVE); NITRITE POSITIVE (NEGATIVE); UROBILINOGEN 0.2 E.U./dl (0.2-1.0)
[2018-05-06 19:48] LABS: BUN 25 mg/dl (7-24); CHLORIDE 101 mmol/L (98-107); CREATININE 0.89 mg/dL (0.55-1.02); POTASSIUM 3.9 mmol/L (3.5-5.1); SGOT/AST 15 IU/L (3-35); SGPT/ALT 24 U/L (12-78); SODIUM 139 mmol/L (136-145); TOTAL PROTEIN 7.9 gm/dL (6.4-8.2)
[2018-05-06 19:50] LABS: ALKALINE PHOSPHATASE 109 U/L (45-117); TROPONIN I < 0.015 ng/ml (<0.045)
[2018-05-06 19:54] LABS: BACTERIA 4+; EPITHELIAL CELLS 0-2; WBC TNTC wbc/hpf (0-5)
[2018-05-06 19:55] LABS: MUCOUS TRACE
[2018-05-06 20:19] VITALS: BP 156/97
[2018-05-06 20:42] VITALS: BP 157/92
[2018-05-07] VITALS: BP 165/78
[2018-05-07] MEDS ORDERED: KLOR-CON 1010 ME1 PO (00:40)
[2018-05-07 06:29] LABS: HEMATOCRIT 38.2 % (37.0-47.0); HEMOGLOBIN 12.2 g/dl (12.0-16.0); MEAN CELL VOLUME 90.3 fl (81.0-99.0); MEAN CORPUSCULAR HGB 28.8 pg (27.0-31.0); MEAN CORPUSCULAR HGB CONC 31.9 g/dl (33.0-37.0); MEAN PLATELET VOLUME 10.8 fl (9.6-12.3); PLATELET COUNT AUTOMATED 210 10*3/uL (130-400); RED BLOOD COUNT 4.23 10*6/uL (4.10-5.10); RED CELL DISTRI WIDTH 12.5 % (0-14.5); WHITE BLOOD COUNT 15.5 10*3/uL (4.8-10.8)
[2018-05-07 06:35] LABS: ACT PARTIAL THROMBO TIME 29.2 SECONDS (20.8-31.5)
[2018-05-07 07:01] LABS: ALBUMIN 2.5 gm/dl (3.1-4.5); BUN 23 mg/dl (7-24); CHLORIDE 103 mmol/L (98-107); PLATELET SUFFICIENCY NORMAL (NORMAL); POTASSIUM 3.7 mmol/L (3.5-5.1); SODIUM 141 mmol/L (136-145); TOTAL CELLS COUNTED 100 #CELLS
[2018-05-07 07:04] LABS: ALKALINE PHOSPHATASE 96 U/L (45-117); CREATININE 0.83 mg/dL (0.55-1.02); PHOSPHOROUS 3.2 mg/dL (2.5-4.9); SGOT/AST 11 IU/L (3-35); SGPT/ALT 18 U/L (12-78); TOTAL PROTEIN 7.1 gm/dL (6.4-8.2)
[2018-05-07 08:00] VITALS: BP 156/81
[2018-05-07 12:00] VITALS: BP 136/77
[2018-05-07 16:00] VITALS: BP 133/69; BP 162/91
[2018-05-07 20:00] VITALS: BP 155/87
[2018-05-08] VITALS (7 sets, daily range): BP systolic 113–190; BP diastolic 71–90
[2018-05-09] VITALS: BP 167/76
[2018-05-09 06:36] LABS: BASO % 0.3 % (0.0-1.0); EOS # 0.1 10*3/uL (0.0-0.4); EOS % 1.3 % (1.0-4.0); HEMATOCRIT 37.8 % (37.0-47.0); HEMOGLOBIN 11.8 g/dl (12.0-16.0); LYMPH # 1.3 10*3/uL (1.3-4.4); LYMPH % 12.1 % (27.0-41.0); MEAN CORPUSCULAR HGB 28.7 pg (27.0-31.0); MEAN CORPUSCULAR HGB CONC 31.2 g/dl (33.0-37.0); MEAN PLATELET VOLUME 11.5 fl (9.6-12.3); MONO # 1.1 10*3/uL (0.1-1.0); MONO % 10.7 % (3.0-9.0); NEUT % 74.9 % (47.0-73.0); PLATELET COUNT AUTOMATED 219 10*3/uL (130-400); RED BLOOD COUNT 4.11 10*6/uL (4.10-5.10); RED CELL DISTRI WIDTH 12.8 % (0-14.5); WHITE BLOOD COUNT 10.7 10*3/uL (4.8-10.8)
[2018-05-09 06:45] LABS: BUN 19 mg/dl (7-24); CHLORIDE 113 mmol/L (98-107); CREATININE 0.79 mg/dL (0.55-1.02); POTASSIUM 3.4 mmol/L (3.5-5.1); SODIUM 148 mmol/L (136-145)
[2018-05-09 08:00] VITALS: BP 159/71
[2018-05-09 12:00] VITALS: BP 142/76
[2018-05-09 16:00] VITALS: BP 152/85
[2018-05-09 20:00] VITALS: BP 178/90
[2018-05-10] VITALS: BP 159/93
[2018-05-10 06:38] LABS: BUN 17 mg/dl (7-24); CHLORIDE 110 mmol/L (98-107); CREATININE 0.76 mg/dL (0.55-1.02); SODIUM 148 mmol/L (136-145)
[2018-05-10 08:25] VITALS: BP 178/92
[2018-05-10 10:21] VITALS: BP 158/76
[2018-05-10 12:00] VITALS: BP 168/90
[2018-05-10 16:00] VITALS: BP 171/83
[2018-05-10 20:00] VITALS: BP 150/72
[2018-05-11] VITALS: BP 168/72; BP 170/80
[2018-05-11 08:00] VITALS: BP 158/90
[2018-05-11 09:00] VITALS: BP 132/86
[2018-05-11 16:00] VITALS: BP 157/80
[2018-05-11 20:00] VITALS: BP 130/51; BP 146/89
[2018-05-11 23:03] VITALS: BP 160/90
[2018-05-12] VITALS: BP 160/90
[2018-05-12 08:00] VITALS: BP 198/101
[2018-05-12 09:30] VITALS: BP 192/90
[2018-05-12 11:50] VITALS: BP 192/90
[2018-05-12] MEDS ORDERED: CIPRO250 MG PO (13:38)
[2018-05-12 16:00] VITALS: BP 150/82
== END 2018-05-12 16:46 | DRG 871 ==
LOC: ED 18:46 → EDHOLD 20:16 → 5E 20:16
PROVIDERS: Emergency Medicine; Family Medicine; Student in an Organized Health Care Education/Training Program
DX: A41.9 Sepsis, unspecified organism (principal); G93.41 Metabolic encephalopathy; I61.9 Nontraumatic intracerebral hemorrhage, unspecified; N39.0 Urinary tract infection, site not specified; E44.0 Moderate protein-calorie malnutrition; R31.9 Hematuria, unspecified; R65.20 Severe sepsis without septic shock; E11.65 Type 2 diabetes mellitus with hyperglycemia; I10 Essential (primary) hypertension; E66.9 Obesity, unspecified; E03.9 Hypothyroidism, unspecified; E11.49 Type 2 diabetes mellitus with other diabetic neurological complication; E55.9 Vitamin D deficiency, unspecified; Z96.641 Presence of right artificial hip joint; K57.90 Diverticulosis of intestine, part unspecified, without perforation or abscess without bleeding; Z66 Do not resuscitate; Z51.5 Encounter for palliative care; Z88.0 Allergy status to penicillin; Z88.2 Allergy status to sulfonamides; Z88.7 Allergy status to serum and vaccine; Z91.012 Allergy to eggs; Z79.899 Other long term (current) drug therapy; Z79.82 Long term (current) use of aspirin; Z87.440 Personal history of urinary (tract) infections; Z90.49 Acquired absence of other specified parts of digestive tract; Z82.49 Family history of ischemic heart disease and other diseases of the circulatory system; Z79.4 Long term (current) use of insulin; Z82.3 Family history of stroke; Z68.27 Body mass index [BMI] 27.0-27.9, adult